=== PATIENT | male | born 1980 | race Caucasian/White ===

== ENCOUNTER 2017-05-08 18:41 | Emergency (ER) | payer BC ==
[2017-05-08 18:52] VITALS: BP 137/84
--- NOTE | 2017-05-08 19:03 | ERNOTE ---
ENT HPI Date of Service: 05/08/17 Time Seen by Provider: 05/08/17 18:57 Source: patient Exam Limitations: no limitations - Immun/Allergies/Home Medications Immunizations: IMMUNIZATION HX Immunizations Up to Date Yes History of Influenza Vaccine No Allergies/Adverse Reactions: Allergies Allergy/AdvReac Type Severity Reaction Status Date / Time No Known Allergies Allergy Verified 05/08/17 18:52 Home Medications: HOME MEDICATIONS Polymyxin B Sulf/Trimethoprim [Polytrim Ophthalmic Solution] 3 drop EACHEYE TID 3 Days #10 ml 05/08/17 [Last Taken Unknown] - History of Present Illness Narrative: Patient presents because he feels that his eye is red and green tea. He denies any injury whatsoever to his eye he states that initially his eye was itching and he did not scratch it however he noticed throughout the day that his eye was getting redder and he has yellowish type of discharge at the medial epicanthus. Review of Systems - Review of Systems Constitutional: Present: no symptoms reported EYE: Present: see HPI ENT: Present: no symptoms reported Respiratory: Present: no symptoms reported Cardiology: Present: no symptoms reported Gastrointestinal/Abdominal: Present: no symptoms reported Genitourinary: Present: no symptoms reported Musculoskeletal: Present: no symptoms reported - Patient's Past Medical History Patient History - Medical: No pertinent hx Patient History - Cardiac/Respiratory: No pertinent hx Patient History - Cancer: No Hx of Cancer - Social History Living Situations: home Psych History: No pertinent hx Smoking Status: Current every day smoker Patient requests Smoking Cessation Consult: No Initiate information on Smoking Cessation: No Alcohol Use: occasionally Drug Use: none - Immunizations Immunizations Up to Date: Yes History of Influenza Vaccine: No Physical Exam - Physical Exam General Appearance: Present: wd/wn, alert, no apparent distress Head Exam: Present: normal inspection, no evidence of injury Eye Exam: Other: right - patient does have redness of the conjunctiva of the right side, there is no cobblestoning anterior chamber is clear pupils are equal round reactive to light extraocular movements are intact no foreign body is noted this patient has conjunctivitis. Ears, Nose, Throat: Present: normal ENT inspection Neck: Present: normal inspection Respiratory: Present: no respiratory distress, normal breath sounds, no accessory muscle use ED Progress - Vital Signs Patient's Vital Signs:: I have reviewed the patient's vital signs. Vital Signs: Vital Signs 05/08/17 18:49 Temperature 36.6 C Pulse Rate 69 Respiratory 18 Rate Blood Pressure 137/84 O2 Sat by Pulse 99 Oximetry - Progress/Reassessment Chief Complaint: Eye Injury/Trauma Departure Clinical Impression: Conjunctivitis due to adenovirus, right eye - Departure Disposition: Home self-care Condition: Good Instructions: Chemical Conjunctivitis, [id number] Referrals: Kori Ramos FNP [Primary Care Provider] - Prescriptions: Polymyxin B Sulf/Trimethoprim [Polytrim Ophthalmic Solution] 3 drop EACHEYE TID 3 Days #10 ml
[2017-05-08] MEDS ORDERED: TETRACAINE HCL 150 DROP BTL ONE (19:07)
== END 2017-05-08 19:13 | disposition home or self-care (01) ==
LOC: ER 18:41
DX: B30.1 Conjunctivitis due to adenovirus (principal); F17.200 Nicotine dependence, unspecified, uncomplicated